=== PATIENT | male | born 1995 | race Caucasian/White ===

== ENCOUNTER 2025-07-27 10:54 | Outpatient (AMB) | payer OTHER, SELFPAY ==
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
[2025-07-27 11:05] VITALS: BP 130/82; PULSE 78; RESP 18; TEMP 36.6; O2SAT 97; BMI 41.0
== END 2025-07-27 11:45 | disposition home or self-care (01) ==
LOC: HO.HMCH 10:55
DX: F41.1 Generalized anxiety disorder (principal); F32.A Depression, unspecified